=== PATIENT | female | born 1940 | race Caucasian/White ===

== ENCOUNTER 2019-03-20 16:28 | Emergency (ER) | payer MEDICARE, MEDICAID ==
[2019-03-20] MEDS ORDERED: Ibuprofen 200 MG TAB ONE (16:49)
--- NOTE | 2019-03-20 17:02 | RAD ---
Exam:4 views right knee HISTORY: Pain. Injury. Unable to bear weight. COMPARISON: None FINDINGS: No joint effusion. Uncomplicated right knee arthroplasty. No fracture. IMPRESSION: No fracture. If there is concern for internal derangement, consider orthopedic consultati on.
--- NOTE | 2019-03-20 17:03 | RAD ---
Exam:2 views right hip HISTORY: Pain COMPARISON: None FINDINGS: Contour of the femoral head is maintained. Joint spaces preserved. Visualized bony pelvis i s intact. IMPRESSION: Unremarkable 2 views right
== END 2019-03-20 17:35 | disposition home or self-care (01) ==
LOC: ERS 16:28
DX: S83.91XA Sprain of unspecified site of right knee, initial encounter (principal); I10 Essential (primary) hypertension; E78.1 Pure hyperglyceridemia; X50.1XXA Overexertion from prolonged static or awkward postures, initial encounter